=== PATIENT | female | born 1955 | race Caucasian/White ===

== ENCOUNTER 2024-09-01 05:55 | Emergency (ER) | payer OTHER, MEDICAID ==
[~2024-09-01] VITALS: Ht 157.5 cm; Wt 80.0 kg
[2024-09-01 05:59] VITALS: O2SAT 99
[2024-09-01] MEDS ORDERED: ACYC200C31 MT (07:09)
[2024-09-01] MEDS ORDERED: NAPR-681 MT (07:09)
[2024-09-01 07:16] VITALS: BP 144/87; PULSE 98; RESP 17; TEMP 36.8; O2SAT 99
== END 2024-09-01 10:27 | disposition home or self-care (01) ==
LOC: ER 05:55
DX: B02.9 Zoster without complications (principal); I10 Essential (primary) hypertension; Z79.1 Long term (current) use of non-steroidal anti-inflammatories (NSAID); Z79.899 Other long term (current) drug therapy
CPT/HCPCS: 99283